=== PATIENT | female | born 2000 | race Caucasian/White ===

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

== ENCOUNTER 2021-08-08 17:04 | Emergency (ER) | payer OTHER, SELFPAY ==
--- NOTE | 2021-08-08 17:14 | ED.URI ---
HPI - URI/Sore Throat General Chief Complaint: Upper Respiratory Infection Stated Complaint: Fever/Sore Throat Time Seen by Provider: 08/08/21 17:46 Source: patient and RN notes reviewed Mode of arrival: ambulatory Limitations: no limitations History of Present Illness HPI Narrative: 20-year-old female presents with concern for fever and sore throat that started yesterday. She also reports headache and slight nausea. Reports she has been taking Tylenol without relief. She reports 2 of her close contacts have been ill, they have not been tested for anything. MD elicited complaint: fever and sore throat Related Data Home Medications Medication Instructions Recorded Confirmed etonogestrel-ethinyl estradiol See Rx Instructions .ROUTE .COMPLEX 08/08/21 08/08/21 [NuvaRing] Allergies Allergy/AdvReac Type Severity Reaction Status Date / Time egg Allergy Chest Pain Verified 08/08/21 17:38 milk Allergy Chest Pain Verified 08/08/21 17:38 peanut Allergy Chest Pain Verified 08/08/21 17:38 peanut oil Allergy Chest Pain Verified 08/08/21 17:38 Review of Systems Review of Systems: CONSTITUTIONAL: Reports malaise, fever. EYES: Denies visual changes, redness, or discharge. ENT: Denies rhinorrhea, congestion, sinus pain, otalgia. Reports sore throat. CARDIOVASCULAR: Denies chest pain, palpitations, or edema. RESPIRATORY: Denies cough. Denies dyspnea. GASTROINTESTINAL: Denies abdominal pain, vomiting, diarrhea. Reports nausea SKIN: Denies rash or itching. MUSCULOSKELETAL: Reports myalgia. NEUROLOGIC: Reports headache. All systems reviewed & are unremarkable except as noted in HPI and below PMFSH Past Medical History Medical History (Updated 08/08/21 @ 17:53 by Dawn Weinberg NP) Mononucleosis Strep pharyngitis UTI (urinary tract infection) Surgical History Surgical History H/O bladder repair surgery History of appendectomy Family History Family History (Updated 03/22/20 @ 18:07 by Gabi Chamorro CNP) Other No acute medical problems Social History Social History Smoking status: Current every day smoker Tobacco type: e-cigarettes/vaping Gender identity (if verbalized by the patient): Female Sexual Orientation (if Verbalized by the Patient): Straight or Heterosexual Spiritual care concerns: No Comments At time of signature, agree with nursing past medical, surgical, social and family history. There is no relevant family history pertinent to the presenting complaint Exam Narrative: GENERAL: Nontoxic appearing and in no acute distress. HEAD: Normocephalic EYES: PERRLA, conjunctivae clear ENT: Nares clear, clear discharge. Mucous membranes moist. TM pearly zaidi with sharp light reflex bilaterally; no tragal tenderness. Oropharynx not erythematous without lesions. Tonsils not enlarged and without exudate, no drooling, no hoarseness, no trismus, uvula midline. NECK: Supple. No lymphadenopathy CHEST: Clear to auscultation, breath sounds equal. No wheezing, rhonchi, rales, or stridor. No respiratory distress, speaks in full sentences. HEART: Regular rate and rhythm. No murmur heard. SKIN: Warm, dry, no rash. NEURO: Alert and oriented x3. PSYCH: Normal mood and affect Course Course Emergency Course: Patient is aware of diagnosis, understands and agrees to treatment plan. Anticipatory guidance given. Patient agrees to follow-up as directed and is aware of reasons to seek care at the emergency department. Portions of this record may have been created with voice recognition software Level of Care: [facility] Visit Vital Signs Vital signs: Vital Signs Temperature 101.1 F H 08/08/21 17:18 Pulse Rate 135 H 08/08/21 17:18 Respiratory Rate 18 08/08/21 17:18 Blood Pressure 111/71 08/08/21 17:18 Pulse Oximetry 98 08/08/21 17:18 Temperature 101.1 F H 08/08/21 17:18 Pulse Ra
[2021-08-08 17:18] VITALS: BP 111/71; PULSE 135; RESP 18; TEMP 38.4; O2SAT 98
== END 2021-08-08 17:55 | disposition home or self-care (01) ==
PROVIDERS: Emergency Provider Nurse Practitioner
DX: B34.9 Viral infection, unspecified (principal); Z20.822 Contact with and (suspected) exposure to COVID-19; F17.200 Nicotine dependence, unspecified, uncomplicated
CPT/HCPCS: 87081; 87426; 87804; 87880; 99213; C9803; G0463

== ENCOUNTER 2021-09-10 09:57 | Emergency (ER) | payer OTHER, SELFPAY ==
--- NOTE | 2021-09-10 10:02 | ED.ABDPAIN ---
HPI - Abdominal Pain General Chief Complaint: Urogenital-Female Stated Complaint: Lower right side pain Time Seen by Provider: 09/10/21 10:30 Source: patient and RN notes reviewed Mode of arrival: ambulatory Limitations: no limitations History of Present Illness HPI narrative: 20-year-old female presents concern for right flank pain. Reports for the last 6 days she has had dysuria, frequency, hematuria and this morning around 3 AM began having dull right flank pain. She reports she has a history of kidney stones, last had a stone in April. Reports she gets sharp flank pain with her kidney stones. Reports her last stone was in April. She currently reports dull mild ache in the right flank. She denies fever, body aches, chills, sweats. Reports she took a half a hydrocodone this morning, denies other intervention MD elicited complaint: flank pain Related Data Home Medications Medication Instructions Recorded Confirmed etonogestrel 0.12 mg-ethinyl See Rx Instructions .Route .COMPLEX 08/08/21 09/10/21 estradiol 0.015 mg/24 hr vaginal ring (NuvaRing) Allergies Allergy/AdvReac Type Severity Reaction Status Date / Time egg Allergy Chest Pain Verified 09/10/21 10:11 milk Allergy Chest Pain Verified 09/10/21 10:11 peanut Allergy Chest Pain Verified 09/10/21 10:11 peanut oil Allergy Chest Pain Verified 09/10/21 10:11 Review of Systems Review of Systems: CONSTITUTIONAL: Denies malaise, chills, sweats, or fever. CARDIOVASCULAR: Denies chest pain, palpitations, or edema. RESPIRATORY: Denies cough or dyspnea. GASTROINTESTINAL: Denies abdominal pain, nausea, vomiting, diarrhea GENITOURINARY: Reports dysuria, frequency, right flank pain, hematuria. Denies urgency, suprapubic pressure SKIN: Denies rash or itching. MUSCULOSKELETAL: Denies back pain or myalgia. All systems reviewed & are unremarkable except as noted in HPI and below PMFSH Past Medical History Medical History (Updated 09/10/21 @ 10:41 by Dawn Weinberg NP) Mononucleosis Strep pharyngitis UTI (urinary tract infection) Surgical History Surgical History H/O bladder repair surgery History of appendectomy Family History Family History (Updated 03/22/20 @ 18:07 by Gabi Chamorro CNP) Other No acute medical problems Social History Social History Smoking status: Current every day smoker Tobacco type: e-cigarettes/vaping Gender identity (if verbalized by the patient): Female Sexual Orientation (if Verbalized by the Patient): Straight or Heterosexual Spiritual care concerns: No Comments At time of signature, agree with nursing past medical, surgical, social and family history. There is no relevant family history pertinent to the presenting complaint Exam Narrative: GENERAL: Well-appearing, well-nourished, and in no acute distress. HEAD: Normocephalic. EYES: PERRLA, conjunctivae clear. NECK: Supple. No lymphadenopathy CHEST: Clear to auscultation. No respiratory distress. HEART: Regular rate and rhythm. ABDOMEN: Soft, nontender upon palpation, nondistended, normal active bowel sounds, no palpable or pulsatile masses, no guarding. No CVA tenderness SKIN: Warm, dry, no rash. NEURO: Alert and oriented x3. PSYCH: Normal mood and affect Course Course Emergency Course: Discussed with patient that her flank pain is likely due to urinary tract infection/pyelonephritis. Discussed treating for UTI and if symptoms persist with flank pain she can follow-up with her primary care or return for reevaluation for nephrolithiasis. Patient reports in the past she has taken Flomax for nephrolithiasis with success. She denies ever having to have a kidney stone surgically treated. Patient is aware of diagnosis, understands and agrees to treatment plan. Anticipatory guidance given. Patient agrees to follow-up as directed and is aware
[2021-09-10 10:03] VITALS: BP 112/66; PULSE 78; RESP 16; TEMP 37.2; O2SAT 100
== END 2021-09-10 10:44 | disposition home or self-care (01) ==
PROVIDERS: Emergency Provider Nurse Practitioner
DX: N39.0 Urinary tract infection, site not specified (principal)
CPT/HCPCS: 81003; 87077; 87086; 87186; 99213; G0463

== ENCOUNTER 2021-10-05 17:51 | Emergency (ER) | payer OTHER, SELFPAY ==
[2021-10-05 17:56] VITALS: BP 111/73; PULSE 107; RESP 14; TEMP 37; O2SAT 98
--- NOTE | 2021-10-05 17:57 | ED.URI ---
HPI - URI/Sore Throat General Chief Complaint: Upper Respiratory Infection Stated Complaint: fever sore throat and headache Time Seen by Provider: 10/05/21 17:58 Source: patient and RN notes reviewed History of Present Illness HPI Narrative: Patient is a 20-year-old female who presents the urgent care with complaints of fever, sore throat, headache. Patient states that started yesterday. Denies of any recent contact with illness. Patient states she is not concerned for COVID. States that she has been taking ibuprofen and Tylenol. Denies of any vomiting or abdominal pain. Denies of any urinary symptoms. No other acute complaints. No acute distress noted. Patient aware of the plan of care. Some parts of this dictation were generated by voice recognition software and may contain typographical and/or grammatical inaccuracies. Related Data Home Medications Medication Instructions Recorded Confirmed etonogestrel 0.12 mg-ethinyl See Rx Instructions .Route .COMPLEX 08/08/21 10/05/21 estradiol 0.015 mg/24 hr vaginal ring (NuvaRing) Allergies Allergy/AdvReac Type Severity Reaction Status Date / Time egg Allergy Chest Pain Verified 10/05/21 18:04 milk Allergy Chest Pain Verified 10/05/21 18:04 peanut Allergy Chest Pain Verified 10/05/21 18:04 peanut oil Allergy Chest Pain Verified 10/05/21 18:04 Review of Systems Review of Systems: CONSTITUTIONAL: Reports of fever EYES: Denies visual changes, redness, or discharge. ENT: Denies rhinorrhea, congestion, otalgia. Reports of sore throat CARDIOVASCULAR: Denies chest pain, palpitations, or edema. RESPIRATORY: Denies cough or dyspnea. GASTROINTESTINAL: Reports of nausea without vomiting, diarrhea or abdominal pain GENITOURINARY: Denies dysuria or hematuria. SKIN: Denies rash or itching. MUSCULOSKELETAL: Denies back pain, joint pain, or myalgia. NEUROLOGIC: Reports of headache All other systems reviewed are negative, except as documented in HPI. [facility] Past Medical History Medical History (Updated 10/05/21 @ 18:12 by BRENDA Frye) Mononucleosis Strep pharyngitis UTI (urinary tract infection) Surgical History Surgical History H/O bladder repair surgery History of appendectomy Family History Family History (Updated 03/22/20 @ 18:07 by Gabi Chamorro CNP) Other No acute medical problems Social History Social History Smoking status: Current every day smoker Tobacco type: e-cigarettes/vaping Gender identity (if verbalized by the patient): Female Sexual Orientation (if Verbalized by the Patient): Straight or Heterosexual Spiritual care concerns: No Comments At the time of my signature, I reviewed and agree with the nursing past medical, surgical, social, and family history. There is no relevant family history pertinent to the patient complaint. Exam Narrative: GENERAL: This is a well-nourished, well-developed patient, in no apparent distress. HEAD: normocephalic, atraumatic. EYES: PERRL. Sclera clear/white. Vision is grossly intact. EARS: External ears normal, auditory canals clear and without drainage, TMs normal without perforation. Hearing grossly intact. NOSE: External nose normal with no obvious nasal discharge, nares without redness, no rhinorrhea. THROAT: Mucous membranes moist, mild erythema noted posterior pharynx with moderate postnasal drainage without exudate or ulceration NECK: Neck supple, non-tender without lymphadenopathy CARDIOVASCULAR: Regular rate and rhythm without murmurs, gallops, or rubs. RESPIRATORY: Clear to auscultation. Breath sounds equal bilaterally. No wheezes, rales, or rhonchi. GASTROINTESTINAL: Abdomen soft, non-tender, nondistended. Bowel sounds are active. SKIN: warm, intact with no suspicious lesions or rash, good texture and turgor. NEURO: awake, alert, and oriented to person, place and time.
[2021-10-05 21:33] LABS: SARS-CoV-2 RNA PCR Negative
== END 2021-10-05 18:28 | disposition home or self-care (01) ==
PROVIDERS: Emergency Provider Nurse Practitioner Family
DX: J02.9 Acute pharyngitis, unspecified (principal); Z20.822 Contact with and (suspected) exposure to COVID-19; F17.290 Nicotine dependence, other tobacco product, uncomplicated
CPT/HCPCS: 87081; 99213; C9803; G0463; U0003; U0005

== ENCOUNTER 2021-11-03 12:04 | Outpatient (CLI) | payer OTHER, SELFPAY ==
[2021-11-03 18:47] LABS: Basophils Percent Auto 0.2 % (0.2-1.2); Eosinophils Absolute Auto 0.3 K/mm3 (0-0.3); Eosinophils Percent Auto 3.6 % (0-4.4); Hematocrit 41.6 % (37.0-47.0); Hemoglobin 12.5 g/dL (12.0-15.0); Immature Granulocyte Absolute 0.02 K/mm3 (0.00-0.031); Immature Granulocyte Percent A 0.2 % (0-0.5); Lymphocytes Absolute Auto 2.09 K/mm3 (0.9-3.2); Lymphocytes Percent Auto 25.4 % (18.3-44.2); Mean Corpuscular Hemoglobin 25.1 pg (26-34); Mean Corpuscular Volume 83.5 fl (80-100); Mean Platelet Volume 10.8 fl (7.4-10.4); Monocytes Absolute Auto 0.7 K/mm3 (0.1-0.6); Monocytes Percent Auto 7.9 % (2.6-8.5); Neutrophils Absolute Auto 5.1 K/mm3 (1.3-6.7); Neutrophils Percent Auto 62.7 % (45.5-73.1); Platelet Count Result 278 k/mm3 (150-375); Red Blood Count 4.98 M/mm3 (4.2-5.4); Red Cell Distribution Width 14.9 % (11.5-14.5); White Blood Count 8.2 K/mm3 (4.5-10.0)
[2021-11-03 19:12] LABS: Alanine Aminotransferase 16 U/L (6-35); Albumin Level 4.1 g/dL (3.7-5.6); Alkaline Phosphatase 72 U/L (45-116); Anion Gap 8 mmol/L (8-16); Aspartate Amino Transferase 42 U/L (14-36); Bilirubin,Total 0.2 mg/dL (0.2-1.3); Blood Urea Nitrogen 9 mg/dL (8-21); Calcium 9.5 mg/dL (8.9-10.7); Carbon Dioxide 26 mmol/L (22-30); Chloride 104 mmol/L (98-107); Estimated Glomerular Filt Rate > 60; Glucose 87 mg/dL (65-110); Sodium 138 mmol/L (134-143)
[2021-11-03 19:14] LABS: Appearance Urine Cloudy (Clear); Bilirubin Urine Negative (Negative); Blood Urine Negative (Negative); Color Urine Yellow (Yellow); Glucose Urine UA Negative (Negative); Ketones Urine Negative (Negative); Leukocyte Esterase Ur Trace LEU/UL (NEGATIVE); Nitrate Urine Negative (Negative); Protein Urine Trace mg/dL (Negative); Specific Grav Ur >= 1.030 (1.001-1.035); Urobilinogen Urine 0.2 mg/dL (<2.0)
[2021-11-03 19:44] LABS: Erythrocyte Sedimentation Rate 12 mm/hr (0-20)
[2021-11-03 19:47] LABS: Mucus Urine Rare /lpf; WBC Urine 0-3 /hpf (0-3)
[2021-11-03 19:49] LABS: Add Urine Microscopic? YES
[2021-11-03 20:30] LABS: Iron 28 ug/dL (37-170)
[2021-11-03 20:39] LABS: Percent Iron Saturation 7 % (20-50)
[2021-11-03 20:53] LABS: Vitamin D 25 Hydroxy 47.1 ng/mL
[2021-11-07 14:43] LABS: EBV Nuclear Ab Antibody >600.00 U/mL (<18.00); EBV Nuclear Ab Interpretation Recent
== END 2021-11-03 12:05 | disposition home or self-care (01) ==
LOC: ANHBWCLAB 12:05
PROVIDERS: PCP Family Medicine; Visit Provider Family Medicine
DX: D50.9 Iron deficiency anemia, unspecified (principal); A68.9 Relapsing fever, unspecified; E55.9 Vitamin D deficiency, unspecified; N39.0 Urinary tract infection, site not specified
CPT/HCPCS: 36415; 80053; 81001; 82306; 82728; 83540; 83550; 85025; 85652; 86664; 86665; 86666

== ENCOUNTER 2023-02-04 11:33 | Emergency (ER) | payer BC, SELFPAY ==
[2023-02-04 11:41] VITALS: BP 118/77; PULSE 96; RESP 18; TEMP 36.9; O2SAT 99
--- NOTE | 2023-02-04 11:44 | ED.EAR ---
HPI - Ear Problem General Chief complaint: Ear Stated complaint: Right Ear Irritation Source: patient and RN notes reviewed History of Present Illness HPI Narrative: 22 yo F presents to urgent care with complaints of right ear pain and muffled hearing since yesterday. Pt states her muffled hearing was relieved when she was taking a steamy shower last night but it continues today. Reports having congestion and runny nose recently. Denies any fevers, chills, chest pain, SOB, or other symptoms. Related Data Allergies Allergy/AdvReac Type Severity Reaction Status Date / Time No Known Allergies Allergy Verified 02/04/23 11:44 Review of Systems Review of Systems: CONSTITUTIONAL: Denies fever, chills, or sweats. EYES: Denies visual changes, redness, or discharge. ENT: Right ear pain and muffled CARDIOVASCULAR: Denies chest pain, palpitations, or edema. RESPIRATORY: Denies cough or dyspnea. GASTROINTESTINAL: Denies abdominal pain, nausea, vomiting, or diarrhea. GENITOURINARY: Denies dysuria or hematuria. SKIN: Denies rash or itching. MUSCULOSKELETAL: Denies back pain, joint pain, or myalgia. NEUROLOGIC: Denies headache, numbness, or weakness. Pertinent positives per HPI. PMFSH Comments At the time of my signature, I reviewed and agree with the nursing past medical, surgical, social, and family history. There is no relevant family history pertinent to the patient complaint. Exam Narrative: GENERAL: This is a well-nourished, well-developed patient, in no apparent distress. HEAD: normocephalic, atraumatic. EYES: Sclera clear/white. Vision is grossly intact. EARS: External ears normal, auditory canals clear and without drainage, Left TM normal without perforation. Hearing grossly intact. Right TM erythremic and bulging NOSE: External nose normal with no obvious nasal discharge, nares without redness, no rhinorrhea. THROAT: Mucous membranes moist, posterior pharynx clear. NECK: Neck supple, non-tender without lymphadenopathy, masses or thyromegaly. CARDIOVASCULAR: Regular rate and rhythm without murmurs, gallops, or rubs. RESPIRATORY: Clear to auscultation. Breath sounds equal bilaterally. No wheezes, rales, or rhonchi. SKIN: warm, intact with no suspicious lesions or rash, good texture and turgor. NEURO: awake, alert, and oriented to person, place and time. There were no obvious focal neurologic abnormalities. Course Course Level of Care: Express Care Visit Vital Signs Vital signs: reviewed Medical Decision Making MDM Narrative Medical decision making narrative: Take antibiotics as directed. May given ibuprofen and/or Tylenol as needed for pain and/or fever. Follow up with primary care provider in 7-10 days to have ear rechecked. Differential Diagnosis Differential Diagnosis: AOM, otitis externa, cerumen impaction Critical Care Time Critical Care Time Critical Care Time: No Discharge Plan Discharge Clinical Impression: Otitis media Qualifiers: Otitis media type: unspecified Chronicity: acute Qualified Code(s): H66.90 - Otitis media, unspecified, unspecified ear Patient Disposition: Home, Self-Care Condition: Stable Instructions: Antibiotic Form, Ear Infection (ED) Additional Instructions: Take antibiotics as directed. May given ibuprofen and/or Tylenol as needed for pain and/or fever. Follow up with primary care provider in 7-10 days to have ear rechecked. Prescriptions: New amoxicillin 500 mg capsule 500 mg PO Q12H Qty: 20 0RF fluticasone propionate [24 Hour Allergy Relief] 50 mcg/actuation spray,suspension 1 spray intranasal BID Qty: 16 0RF Rx Instructions: administer into each nostril Follow-up/Referrals: Matt Sanchez MD [Primary Care Provider] - Stand Alone Forms: Work/School Release IP Time of Disposition: 11:48
== END 2023-02-04 11:52 | disposition home or self-care (01) ==
PROVIDERS: Emergency Provider Nurse Practitioner Family; PCP Family Medicine
DX: H66.91 Otitis media, unspecified, right ear (principal)
CPT/HCPCS: 99213; G0463

== ENCOUNTER 2023-12-14 19:05 | Emergency (ER) | payer BC, SELFPAY ==
[2023-12-14 19:09] VITALS: BP 137/78; PULSE 98; RESP 16; TEMP 37.6; O2SAT 99
--- NOTE | 2023-12-14 19:38 | ED.GENADULT ---
HPI - General Adult General Chief complaint: Urogenital-Female Stated complaint: poss UTI Time Seen by Provider: 12/14/23 19:38 Source: patient, RN notes reviewed and old records reviewed Mode of arrival: ambulatory Limitations: no limitations History of Present Illness HPI narrative: 22-year-old female to Express Care for complaint of burning with urination, bladder discomfort and urinary frequency for 5 days. Patient denies flank pain, abdominal pain, back pain, fever, nausea, vomiting, bowel changes. Patient endorses history of chronic UTIs, states that her last 1 was approximately 1 year ago. Patient has been treating at home with AZO for 2 days. Patient advised that this will skew UA results and her urine will be sent off for culture. Patient verbalized understanding. Patient resting in exam room in no acute distress. Respirations even and nonlabored. Patient able to tolerate fluids by mouth. Related Data Home Medications Medication Instructions Recorded Confirmed etonogestrel 0.12 mg-ethinyl See Rx Instructions .Route .COMPLEX 08/08/21 12/14/23 estradiol 0.015 mg/24 hr vaginal ring (NuvaRing) Allergies Allergy/AdvReac Type Severity Reaction Status Date / Time egg Allergy Chest Pain Verified 12/14/23 19:42 milk Allergy Chest Pain Verified 12/14/23 19:42 peanut Allergy Chest Pain Verified 12/14/23 19:42 peanut oil Allergy Chest Pain Verified 12/14/23 19:42 Review of Systems Review of Systems: All systems reviewed & are unremarkable except as noted in HPI and below Constitutional: Constitutional: Reports no additional constitutional complaints Eyes: Eyes: Reports no additional eye complaints ENT: Reports system reviewed and no additional complaints, except as documented Cardiovascular: Cardiovascular: Reports no additional cardiovascular complaints, Denies chest pain and Denies dyspnea Respiratory: Respiratory: Reports no additional respiratory complaints, Denies cough and Denies dyspnea Genitourinary: Genitourinary: Reports as per HPI, Reports nocturia, Reports dysuria, Denies flank pain and Reports other (pt c/o bladder pain ) Musculoskeletal: Musculoskeletal: Reports no additional musculoskeletal complaints Neurologic: Reports system reviewed and no additional complaints, except as documented Psychiatric: Psychiatric: Reports no additional psychiatric complaints PMFSH Past Medical History Medical History Mononucleosis Strep pharyngitis UTI (urinary tract infection) Surgical History Surgical History H/O bladder repair surgery History of appendectomy Family History Family History Other No acute medical problems Social History Social History Smoking status: Current every day smoker Tobacco type: e-cigarettes/vaping Alcohol intake: never Substance use: never Substance use type: does not use Living arrangements: with family Occupation/Education: student Gender identity (if verbalized by the patient): Female Sexual Orientation (if Verbalized by the Patient): Straight or Heterosexual Spiritual care concerns: No Agree to blood products: Yes Comments At the time of my signature, I reviewed and agree with the nursing past medical, surgical, social, and family history. There is no relevant family history pertinent to the patient complaint. Exam Const: General: cooperative, healthy appearing, comfortable, no acute distress, alert and well nourished Nutritional Appearance: well nourished Orientation/consciousness: patient oriented x3 Limitations: no limitations HENMT: Head: normal to inspection Ears: external ears normal Face/Nose/Sinus: Normal external nose present, Normal nares present, normal facial exam, No erythema
== END 2023-12-14 19:58 | disposition home or self-care (01) ==
PROVIDERS: Emergency Provider Nurse Practitioner Family; PCP Family Medicine
DX: R30.0 Dysuria (principal)
CPT/HCPCS: 87086; 87088; 99213; G0463

== ENCOUNTER 2024-12-31 16:42 | Emergency (ER) | payer SELFPAY ==
--- OUTSIDE RECORDS SUMMARY | 2024-12-31 16:44 | XMS_ITS | Clinical Summary ---
Author Organization [facility] Address [address] [place] [address] Phone Care Team Providers Care Trommel Tender Name Role Phone Matt Sanchez MD Primary Care Provider [phone] Clarissa Kiser APRN, NEEDLEWORKER Unavailable [phone] Allergies No known active allergies Medications sulfamethoxazol e-trimethoprim DS (BACTRIM DS, SEPTRA DS) 800-160 MG Tablet TK 1 T PO BID 0 12/26/2018 Activ e NUVARING 0.12-0.015 MG/24HR RING 3 12/04/2018 Active ketorolac (TORADOL) 10 MG Tablet Take 1 Tablet by mouth every 6 hours as needed for Moderate or more severe pain. 20 Tablet 01/01/2021 Active tamsulosin (FLOMAX) 0.4 MG Capsule Take 1 Capsule by mouth daily. 10 Capsule 01/01/2021 Active acetaminophen-c odeine (TYLENOL #3) 300-30 MG TabletIndicatio ns:Acute cystitis with hematuria Take 1 Tablet by mouth every 6 hours as needed for Moderate or more severe pain. 12 Tablet 09/10/2021 Active loperamide (IMODIUM) 2 MG CapsuleIndicati ons:Diarrhea Take 2 mg by mouth as needed. Indications: Diarrhea Active tamsulosin (FLOMAX) 0.4 MG Capsule Take 0.4 mg by mouth daily. Active ondansetron (ZOFRAN) 4 MG Tablet Take 1-2 Tablets by mouth every 8 hours as needed for Nausea - 1st line. 10 Tablet 12/13/2021 Active Social History Tobacco Use Types Packs/Day Years Used Date Smoking Tobacco: Never Smokeless Tobacco: Never Alcohol Use Standard Drinks/Week Comments Never 0 (1 standard drink = 0.6 oz pur e alcohol) Comments No Sex and Gender Information Value Date Recorded Sex Assigned at Not on file Legal Sex Female 3:54 PM CDT Gender Identity Not on file Sexual Orientation Not on file Last Filed Vital Signs Vital Sign Reading Time Taken Comments Blood Pressure 121/79 12/13/2021 9:54 PM CDT Pulse 99 12/13/2021 9:54 PM CDT Temperature 36.4 C (97.6 F) 12/13/2021 9:54 PM CDT Respiratory Rate 16 12/13/2021 9:54 PM CDT Oxygen Saturation 98% 12/13/2021 9:54 PM CDT Inhaled Oxygen Concentration - - Weight 45.4 kg (100 lb) 12/13/2021 7:14 PM CDT Height 160 cm (5' 3) 12/13/2021 7:14 PM CDT Body Mass Index 17.71 12/13/2021 7:14 PM CDT Plan of Treatment Health Maintenance Due Date Last Done Comments Hepatitis C Virus (HCV) Screening 2001 Influenza Immunization (#1) 2024 04/10/2012, 1 04/09/2007 SARS-COV-2 Immunization ( season) 2024 Respiratory Syncytial Virus (RSV) Immunization (Adult) (1 - 1-dose 75+ series) 2076 Hepatitis B Immunization Completed 003, 02/20/2002, 2001 Pneumococcal Immunization Combined Aged Out 12/27/2002, 06/26/2002, 04/24/2002, Additional history exists No longer eligible based on patient's age to complete this topic Measles Mumps Rubella (MMR) Immunization Discontinued 05/18/2006, 12/27/2002 Polio (IPV) Immunization Discontinued 007, 09/19/2002, 04/24/2002, Additional history exists Varicella Immunization Discontinued 05/18/2006, 2002 DTaP/Tdap/Td Immunization Discontinued 2013, 05/18/2006, 03/19/2003, Additional history exists TdaP Immunization Completed 08/24/2013 Human Papillomavirus (HPV) Immunization Completed 04/17/2014, 11/05/2013, 08/24/2013 Hepatitis A Immunization Discontinued 05/27/2015, 07/28 Meningococcal Immunization (ACWY) Completed 04/04/2018, 08/24/2013 Meningococcal B Immunization Completed 01/16/2020, 04/04/2018 Rotavirus Immunization Aged Out No lo nger eligible based on patient's age to complete this topic Care Teams Trommel Tender Relationship Specialty Start Date End Date Matt Sanchez MD PCP - General Family Medicine 12/13/21 Clarissa Kiser I, INTERACTIVE MEDIA DESIGNER, NEEDLEWORKER [address] [facility] [address] [place] [id number] Advanced Practice Nurse 12/13/21
--- OUTSIDE RECORDS SUMMARY | 2024-12-31 16:44 | XMS_ITS | Clinical Summary ---
Author Organization [facility] Address [address] [place] [address] Care Team Providers Care Paperhanger Pipe Name Role Phone Alexandra Montgomery MD Primary Care Provider Source Comments [facility],non-owned Affiliates and Associated Physician Practices is amultiple site organization consisting of ambulatory clinics and hospital sitesin [place], [place], [place] and [place]. This disclosure is being madepursuant to the Care Everywhere program and may not contain all information available regarding this patient. Last updated 17.[facility] [employer] Allergies Active Allergy Reactions Criticality Noted Date Comments Albumin GI Discomfort 05/02/2018 Milk-Related Compounds Other,GI Discomfort 07/2018 Tightness in throat Peanut-Derived Other 05/02/2018 Tightness in throat Medications * Be aware that medications may not be up to date on this document. Alwaysverify current medications with the patient. NUVARING 0.12-0.015 MG/24HR vaginal ring 0 04/17/2018 Active Pediatric Multivit-Mineral s-C (GUMMI BEAR MULTIVITAMIN/MIN PO) Take 1 tablet by mouth once daily Active Active Problems Problem Noted Date Diagnosed Date Kidney stone 05/02/2018 Recurrent UTI 05/02/2018 Short stature 04/27/2012 Social History Tobacco Use Types Packs/Day Years Used Date Smoking Tobacco: Never Smokeless Tobacco: Never Tobacco Cessation:Counseling Given: No Alcohol Use Standard Drinks/Week Comments Not Asked 0 (1 standard drink = 0.6 oz pur e alcohol) Comments No Sex and Gender Information Value Date Recorded Sex Assigned at Not on file Legal Sex Female 5:44 AM PIPE COVERING MOLDER Gender Identity Not on file Sexual Orientation Not on file Last Filed Vital Signs Vital Sign Reading Time Taken Comments Blood Pressure 102/60 01/22/2019 1:38 PM CDT Pulse 78 04/27/2012 9:44 AM PIPE COVERING MOLDER Temperature - - Respiratory Rate 16 04/27/2012 9:44 AM PIPE COVERING MOLDER Oxygen Saturation - - Inhaled Oxygen Concentration - - Weight 43.6 kg (96 lb 1.9 oz) 01/22/2019 1:38 PM CDT Height 160.6 cm (5' 3.23) 01/22/2019 1:38 PM CD T Body Mass Index 16.9 01/22/2019 1:38 PM CDT Plan of Treatment Health Maintenance Due Date Last Done Comments HIV SCREENING 2016 HPV VACCINE (1 - 3-dose series) 2016 CHLAMYDIA/GONORRHEA SCREENING 2017 MENINGOCOCCAL (Group B) VACC INE SHARED DECISION-MAKING (1 of 2 - Standard) 2017 HEPATITIS C SCREENING 12/15/2019 DTAP/TDAP/TD VACCINES (1 - Tdap) 2020 HEPATITIS B VACCINE (1 of 3 - 19+ 3-dose series) 2020 DEPRESSION SCREENING 03/28/2024 COVID-19 VACCINE (1 - 2023-2 5 season) 2024 INFLUENZA VACCINE (#1) 2024 ZOSTER VACCINE (1 of 2) 12/20/2051 HIB VACCINE Aged Out No longer eligi ble based on patient's age to complete this topic MENINGOCOCCAL GROUPS A/C/Y/W VACCINE Aged Out No longer eligible b ased on patient's age to complete this topic PNEUMOCOCCAL VACCINE Aged Out No long er eligible based on patient's age to complete this topic Insurance [employer] MEDICAID - [place] [facility] CARE [facility] CARE MEDICAID - OUT OF STATE Care Teams Paperhanger Pipe Relationship Specialty Start Date End Date Alexandra Montgomery MD PCP - General Pediatrics 05/02/18
--- OUTSIDE RECORDS SUMMARY | 2024-12-31 16:44 | XMS_ITS | Clinical Summary ---
Author Organization [facility] Address [address] [place] [address] [place] [address] Care Team Providers Care Oceanography Teacher Name Role Phone Provider, Abstract Primary Care Provider Unavail able Allergies Active Allergy Reactions Criticality Noted Date Comments Egg Nausea and Vomiting Low 07/07/2020 Egg White Unknown,Other (See Comments) Low 05/02/2018 Milk Containing Products (Dairy) Nausea and Vomiting,Other (See Comments) Low 05/02/2018 Tightness in throat Peanut Other (See Comments) Low 05/02/2018 Tightness in throat Tightness in throat Medications tamsulosin (FLOMAX) 0.4 mg capsule Take 0.4 mg by mouth. 07/01/2020 Active HYDROcodone-rahul taminophen (NORCO) 5-325 mg tablet Take 1-2 Tablets by mouth. 07/01/2020 Active etonogestrel-Et hinyl Estradiol (NuvaRing) 0.12-0.015 mg/24 hr Ring 04/17/2018 Activ e multivitamin (DAILY-LIZ) tablet Take 1 Tablet by mouth daily. Active dexAMETHasone (DECADRON) 4 mg tabletIndicatio ns:Iron deficiency anemia due to chronic blood loss Take 1 Tablet (4 mg) by mouth 2 times daily. Take 07/31/20 and 08/01/20 prior to iron infusion 2 Tablet 07/30/2020 Active Active Problems Problem Noted Date Diagnosed Date Iron deficiency anemia 07/07/2020 Family History Relation Name Status Comments Father Alive Mother Alive Sister 1 Alive Sister 2 Alive Social History Tobacco Use Types Packs/Day Years Used Date Smoking Tobacco: Never Smokeless Tobacco: Never Alcohol Use Standard Drinks/Week Comments Never 0 (1 standard drink = 0.6 oz pur e alcohol) Comments Unknown Sex and Gender Information Value Date Recorded Sex Assigned at Not on file Legal Sex Female 2:59 PM [employer] Gender Identity Not on file Sexual Orientation Not on file Last Filed Vital Signs Vital Sign Reading Time Taken Comments Blood Pressure 125/73 07/30/2020 11:20 AM CDT Pulse 106 07/30/2020 11:20 AM CDT Temperature 36.6 C (97.9 F) 07/30/2020 11:20 AM CDT Respiratory Rate - - Oxygen Saturation 98% 07/30/2020 11:20 AM CDT Inhaled Oxygen Concentration - - Weight 45 kg (99 lb 3.2 oz) 07/30/2020 11:20 AM CDT Height 160 cm (5' 3) 07/30/2020 11:20 AM CDT Body Mass Index 17.57 07/30/2020 11:20 AM CDT Plan of Treatment Health Maintenance Due Date Last Done Comments CHLAMYDIA SCREENING (ANNUAL) 11-24 YEARS 2012 HPV VACCINES (1 - 3-dose series) 2016 DTAP/TDAP/TD VACCINES (1 - Tdap) 2020 HEPATITIS B VACCINES (1 of 3 - 19+ 3-dose series) 11/27 CERVICAL CANCER SCREENING 2022 HPV/Cotest (21-29) 2022 PAP SMEAR 2022 INFLUENZA VACCINE (#1) 2024 Care Teams Oceanography Teacher Relationship Specialty Start Date End Date Provider, Abstract NO ADDRESS ON FILE PCP - General 07/07/20
--- OUTSIDE RECORDS SUMMARY | 2024-12-31 16:44 | XMS_ITS | Data Portability ---
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 and review of plan of care. [id number] Bright Juarez MD [facility] [address] [address] 10/28/2022 14:10:51 10/28/2022 15:05:13 Vulvovaginitis [id number] N76.0 This patient is a 21-year-ol d female who presents for vulvar irritation discharge. She for several days has had white discharge inflammati on swelling. She has some swelling and erythema on the vulva. It was examined. The distal vagina appears normal. There is white discharge at the introitus. She will be treated with oral Diflucan and a topical steroid/an tifungal. [id number] SOFIYA Block [facility] [address] [address] 05/30/2023 15:19:03 05/31/2023 09:26:00 Contraception care management [id number] Z30.9 Discussed all control options in great detail. Pt would like to start ocp. She is aware of the risks and benefits. She does not have any medical condition that is contraindi cated with the use of estrogen containing control. Pt will start her pills on the first day following the start of her period. She is aware it is not effective for control the first month. She is also aware of the importance of taking at the same time every day. Encouraged use of condoms as the pill does not protect against STD's. Will return in 3 months for med check. Pt verbalized understand ing. Time spent in visit is a total of 20 mins with at least 50% of visit consisting of counseling and review of plan of care. Health Concerns Section Related Observation LastModified by Organization Detai ls LastModified Time None Recorded Concern Status LastModified by Organization Details LastModified Time None Recorded Advance Directives Directive None Recorded Payers Insurance Date Sequence Insurance Name Policy Number Policy Hayden Covered Member ID Hayden Member ID Guarantor Name 12/16/2021 2 [place] [employer] A[employer] Lizeth Kai [id number] Lizeth Kai 03/23/2022 1 [facility] [id number] Jorge Quinn [id number] Lizeth Zavalatate 03/30/2024 1 [employer] [id number] Jorge Lucastate [id number] Lizeth Quinn Notes Date Note Type Note Provider Name and Address Organization Details Recorded Time 10/04/2020 text/html ROS as noted in the HPI Here today to discuss possible contraception change. She is on nuvaring and really loves it but has found that sometimes it will slip down and feel like it is going to fall out. This is usually after she has had sex with her boyfriend. Unsure if she is placing it high enough?? Will occasionally feel this way randomly as well but overall she has had no issues. She is interested in hearing more about the BC patch as well. Shayna Hansen [facility] [address], [place], [address], [facility] 10/04/2020 13:14:59 01/12/2022 text/html ROS as noted in the HPI Here today for medication check. Shayna Hansen [facility] [address], [place], [address], [facility] 01/12/2022 12:00:59 03/30/2022 text/html ROS as noted in the HPI Here today for medication check of Xulane patch. Shayna Hansen [facility] [address], [place], [address], [facility] 03/30/2022 12:35:51 10/28/2022 text/html Vaginal/Vulvar ProblemReported by Patient This patient is a 21-year-old female who presents for vulvar irritation discharge. She for several days has had white discharge inflammation swelling. She has some swelling and erythema on the vulva. It was examined. The distal vagina appears normal. There is white discharge at the introitus. She will be treated with oral Diflucan and a topical steroid/antifungal. Bright Juarez MD [address], [place], [address], [facility] 10/28/2022 14:51:51 05/30/2023 text/html 22yo [id number] for BC consultusing withdrawal for BC currentlywas on the patch about 6 months ago, would like a different methodhas also tried pills and the nuvaring previouslydenies h/o DVT/PE, HTN, Stroke/MO, cancer, liver disease, or migraine with aura SOFIYA Block [address], [place], [address], [facility] 05/31/2023 09:14:59 OBGyn Episode No OBEpisode recorded.
[2024-12-31 17:20] VITALS: BP 120/69; PULSE 77; RESP 16; TEMP 36.6; O2SAT 100
--- NOTE | 2024-12-31 17:45 | ED.FEMALEGU ---
HPI - Female Genitourinary General Chief complaint: Urogenital-Female Stated complaint: uti Time Seen by Provider: 12/31/24 17:40 Source: patient and RN notes reviewed Mode of arrival: ambulatory Limitations: no limitations History of Present Illness HPI Narrative: 24-year-old female patient presents today complaining of urinary frequency, urgency, dysuria, and voiding small amounts. Symptoms began yesterday. Denies hematuria, abdominal or back pain, fever. She took some azo yesterday with mild relief, but none today. No recent antibiotic use. Related Data Allergies Allergy/AdvReac Type Severity Reaction Status Date / Time egg Allergy Chest Pain Verified 12/31/24 17:31 milk Allergy Chest Pain Verified 12/31/24 17:31 peanut Allergy Chest Pain Verified 12/31/24 17:31 peanut oil Allergy Chest Pain Verified 12/31/24 17:31 PMFSH Past Medical History Medical History Mononucleosis Strep pharyngitis UTI (urinary tract infection) Surgical History Surgical History H/O bladder repair surgery History of appendectomy Family History Family History Other No acute medical problems Social History Social History Smoking status: Current every day smoker Tobacco type: e-cigarettes/vaping Alcohol intake: never Substance use: never Substance use type: does not use Living arrangements: with family Occupation/Education: student Gender identity (if verbalized by the patient): Female Sexual Orientation (if Verbalized by the Patient): Straight or Heterosexual Spiritual care concerns: No Agree to blood products: Yes Comments At time of signature, I have reviewed and agree with nursing past medical, surgical, social and family history unless otherwise noted. Please see nursing chart for further information. There is no relevant family history pertinent to the presenting complaint Exam Narrative: GENERAL: Well-appearing, well-nourished, and in no acute distress. HEAD: Normocephalic, atraumatic. EYES: EOMI. No redness or drainage. Conjunctivae normal. ENT: Mucous membranes pink and moist. NECK: Normal AROM. CHEST: No respiratory distress. Clear to auscultation. HEART: Regular rate and rhythm. No murmur appreciated. Normal peripheral pulses. ABDOMEN: Soft, nontender, nondistended, normal active bowel sounds. -CVAT SKIN: Warm, dry, no rash. Capillary refill normal. Normal skin turgor. NEURO: No focal deficits. Alert and oriented x3. Gait steady. PSYCH: Normal affect. No signs of depression or anxiety. Course Course Level of Care: Express Care Visit Vital Signs Vital signs: Vital Signs Temperature 97.9 F 12/31/24 17:20 Pulse Rate 77 12/31/24 17:20 Respiratory Rate 16 12/31/24 17:20 Blood Pressure 120/69 12/31/24 17:20 Pulse Oximetry 100 12/31/24 17:20 Oxygen Delivery Room Air 12/31/24 17:20 Temperature 97.9 F 12/31/24 17:20 Pulse Rate 77 12/31/24 17:20 Respiratory Rate 16 12/31/24 17:20 Blood Pressure 120/69 12/31/24 17:20 Pulse Oximetry 100 12/31/24 17:20 Oxygen Delivery Room Air 12/31/24 17:20 Reviewed MDM - Female Genitourinary MDM Narrative Medical decision making narrative: 24-year-old female patient presents today complaining of urinary frequency, urgency, dysuria, and voiding small amounts. Symptoms began yesterday. Denies hematuria, abdominal or back pain, fever. She took some azo yesterday with mild relief, but none today. Patient's exam normal. Unable to run a urinalysis due to azo use. Urine sample was orange. Culture sent for testing. Based on patient's history, will start her on Macrobid. May continue azo for discomfort. Vital signs stable. Patient agrees with plan. Anticipatory guidance and ED precautions given. Differential Diagnosis Differential diagnosis: Likely urinary tract infection, vaginitis and cystitis Critical Care Time Critical Care Time Critical Care Time: No Discharge Plan Discharge Clinical Impression: UTI symptoms Patient Disposition: Home Condition: Stable Instructions: Antibiotic Form, Urinary Tract Infection in Women (DC) Additional Instructions: Your urine will be sent to the hospital for urine culture and you will be notified if your antibiotics need to be changed. Please take the Macrobid as prescribed until gone. You may continue azo for symptoms if you wish. As discussed, if you develop worsening symptoms such as fever greater than 100.3, severe abdominal or back pain, please go to the ER immediately for further evaluation. Patient Language: Congolese Prescriptions: New nitrofurantoin monohyd/m-cryst [Macrobid] 100 mg capsule 100 mg PO Q12H 7 Days Qty: 14 0RF Rx Instructions: must administer with a meal/food Follow-up/Referrals: Matt Sanchez MD [Primary Care Provider, Family Practice] Time of Disposition: 17:56
== END 2024-12-31 18:00 | disposition home or self-care (01) ==
PROVIDERS: Emergency Provider Nurse Practitioner; PCP Family Medicine
DX: R30.0 Dysuria (principal); R35.0 Frequency of micturition; R39.15 Urgency of urination; F17.290 Nicotine dependence, other tobacco product, uncomplicated
CPT/HCPCS: 87086; 87186; 99213; G0463

== ENCOUNTER 2025-02-05 07:58 | Outpatient (CLI) | payer BC, SELFPAY ==
--- OUTSIDE RECORDS SUMMARY | 2025-02-05 08:06 | XMS_ITS | Clinical Summary ---
Author Organization [facility] Address [address] [place] [address] Phone Care Team Providers Care Manufacturing Technology Analyst Name Role Phone Matt Sanchez MD Primary Care Provider [phone] Clarissa Kiser APRN, COOK RESTAURANT Unavailable [phone] Allergies No known active allergies Medications sulfamethoxazol [...] age to complete this topic Care Teams Manufacturing Technology Analyst Relationship Specialty Start Date End Date Matt Sanchez MD PCP - General Family Medicine 12/13/21 Clarissa Kiser I, MANAGER DAIRY, COOK RESTAURANT [address] [facility] [address] EMANU[address] [place] [id number] Advanced Practice Nurse 12/13/21
--- OUTSIDE RECORDS SUMMARY | 2025-02-05 08:06 | XMS_ITS | Clinical Summary ---
Author Organization [facility] Address [address] [place] [address] Care Team Providers Care Shingles Roofer Helper Name Role Phone Alexandra Montgomery MD Primary Care Provider Source Comments [facility],non-owned Affiliates and Associated Physician Practices is amultiple site organization consisting of ambulatory clinics and hospital sitesin [place], [place], [place] and [place]. This disclosure is being madepursuant to the Care Everywhere program and may not contain all information available regarding this patient. 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
--- OUTSIDE RECORDS SUMMARY | 2025-02-05 08:06 | XMS_ITS | Clinical Summary ---
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
[2025-02-05 08:44] LABS: Hematocrit 36.3 % (37.0-47.0); Hemoglobin 11.2 g/dL (12.0-15.0); Mean Corpuscular HGB Conc 30.9 g/dl (32-36); Mean Corpuscular Hemoglobin 24.5 pg (26-34); Mean Corpuscular Volume 79.3 fl (80-100); Platelet Count Result 337 k/mm3 (150-375); Red Blood Count 4.58 M/mm3 (4.2-5.4); White Blood Count 8.1 K/mm3 (4.5-10.0)
[2025-02-05 08:55] LABS: Alanine Aminotransferase 20 U/L (6-35); Albumin Level 4.4 g/dL (3.5-5.1); Alkaline Phosphatase 72 U/L (38-126); Anion Gap 8 mmol/L (4-12); Aspartate Amino Transferase 26 U/L (14-36); Bilirubin,Total 0.3 mg/dL (0.2-1.3); Blood Urea Nitrogen 12 mg/dL (7-17); Calcium 9.6 mg/dL (8.4-10.2); Carbon Dioxide 24 mmol/L (22-30); Chloride 106 mmol/L (98-107); Cholesterol 143 mg/dL (0-200); Estimated Glomerular Filt Rate > 60; Glucose 86 mg/dL (65-110); HDL Direct 56 mg/dL; Potassium 3.4 mmol/L (3.4-5.0); Sodium 138 mmol/L (137-145); Total Protein 7.4 g/dL (6.3-8.2); Triglycerides 146 mg/dL (<150)
[2025-02-05 09:25] LABS: Syphilis IgG/IgM Antibody Non-Reactive (Nonreactive)
[2025-02-05 09:29] LABS: Hepatitis B Surface Antigen Negative (Negative)
[2025-02-05 09:35] LABS: HAV RESULT Negative (Negative); Hepatitis B Core IgM Result Negative (Negative)
[2025-02-05 10:18] LABS: Trichomonas Vag PCR NOT DETECTED (NOT DETECTE)
[2025-02-05 10:59] LABS: Iron 34 ug/dL (37-170)
[2025-02-05 11:11] LABS: Percent Iron Saturation 8 % (20-50)
[2025-02-05 11:29] LABS: HIV 1/2 Ab P24 Ag Result Negative (Negative)
[2025-02-05 12:33] LABS: Ferritin 5.46 ng/mL (6.24-137)
[2025-02-06 08:09] LABS: HSV 1 IgG, Type Spec Reactive (Non Reactive); HSV 2 IgG, Type Spec Non Reactive (Non Reactive)
== END 2025-02-05 07:59 | disposition home or self-care (01) ==
PROVIDERS: PCP Nurse Practitioner Family; Visit Provider Nurse Practitioner Family
DX: Z00.00 Encounter for general adult medical examination without abnormal findings (principal); E61.1 Iron deficiency; R74.01 Elevation of levels of liver transaminase levels; Z13.220 Encounter for screening for lipoid disorders; Z11.3 Encounter for screening for infections with a predominantly sexual mode of transmission; Z11.59 Encounter for screening for other viral diseases; Z11.4 Encounter for screening for human immunodeficiency virus [HIV]
CPT/HCPCS: 36415; 80053; 80061; 80074; 82728; 83540; 83550; 85027; 86593; 86695; 86696; 86703; 87491; 87591; 87661; G0432

== ENCOUNTER 2025-03-27 08:49 | Emergency (ER) | payer BC, SELFPAY ==
[2025-03-27 08:54] VITALS: BP 111/69; PULSE 77; RESP 18; TEMP 37.1; O2SAT 99
--- OUTSIDE RECORDS SUMMARY | 2025-03-27 08:54 | XMS_ITS | Clinical Summary ---
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
--- OUTSIDE RECORDS SUMMARY | 2025-03-27 08:54 | XMS_ITS | Data Portability ---
Author Organization [facility] [place] Address [address] [place] [address] Care Team Providers Care Joint Cleaning Machine Operator Name Role Phone CLARISSA MANUEL Primary Care Provider Assessment No assessment recorded. Plan of Treatment Reminders Order Date Submit Date Provider Last Modified By Organization Details Last Modified Time Details Appointments None recorded. Lab None recorded. Referral None recorded. Procedures None recorded. Surgeries None recorded. Imaging None recorded. Medication Orders Junel Fe 24 1 mg-20 mcg (24)/75 mg (4) tablet 2023 024 [facility]78, [address], [place], [place], [id number], 4 15:45:54 clotrimazol e-betametha sone 1 %-0.05 % topical cream 2022 023 [place] [address] [facility] #57655, [address], [place], [place], [id number], 4 15:30:25 Diflucan 150 mg tablet 2022 023 [facility] #30545, [address], [place], [place], [id number], 4 15:30:31 fluticasone propionate 50 mcg/actuati on nasal spray,suspe nsion 2021 022 [facility], [address], [place], [place], [id number], 4 15:30:34 Xulane 150 mcg-35 mcg/24 hr transdermal patch 2021 [facility], [address], [place], [place], [id number], 4 15:30:40 Patient TargetsNo targets recorded. Patient [...] ption;Re corded Elsewher e: No Locat ion: [facility] S ource: EHR Patient Advocate renea: N Mariati ce ID: 0001 Avelino lable Time: 01:00:00 PM Love michelle [facility] 15:24:[address] Concept Completed 201804/28/2020 Encntr for routine child health exam w/o abnormal findings ;Recorde d Elsewher e: No Locat ion: [facility] S ource: EHR Patient Advocate renea: N Mariati ce ID: 0001 Avelino lable Time: 01:00:00 PM Love michelle [facility] 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 15:24:[address] Concept Completed 201804/28/2020 Encounte r for surveill ance of other contrace ptives;R ecorded Elsewher e: No Locat ion: [facility] S ource: EHR Patient Advocate renea: N Practi ce ID: 0001 Avelino lable Time: 03:30:00 PM Love michelle, [facility] 15:24:24 Procedur e Completed 201804/28/2020 Enctr srvlnc implanta ble subderma l contrace ptive;Pr actice ID: 0001 Love michelle, [facility] 15:24:19 Blood leukocyt e number above referenc e range [id number] Completed 201804/28/2020 Elevated white blood cell count, unspecif ied;Prac yeimi ID: 0001 Love michelle [facility] 15:24:17 Urinary tract infectio us disease 78144616 Completed 201804/28/2020 Urinary tract infectio n, site not specifie d;Practi ce ID: 0001 Love michelle, [facility] 15:24:26 Breast lump [id number] Completed 201804/28/2020 Unspecif ied lump in unspecif ied breast;P ractice ID: 0001 Love Jacinto [facility], [facility] 15:24:11 Evaluati on finding Completed 201804/28/2020 Hematuri a, unspecif ied;Prac yeimi ID: 0001 Love michelle, [facility] 15:24:15 Problem Notes None recorded. Procedures Surgical History Date Name Laterality Status Provider Name and Address Organization Details Recorded Time Appendectomy completed Nona [facility] 01/11/2020 12:39:52 repair of urinary bladder completed Nona [facility] 01/11/2020 12:40:00 Other completed Love Jacinto [facility] 07/16/2020 14:54:01 Imaging Results None recorded. Procedure Notes None recorded. Medical Equipment None Reported. Allergies Allergen ID Allergen Name Allergen Category Reaction Reaction Severity Criticality Documentation Date Start Date Code Code System Note Provider Name and Address Organization Details Recorded Time 50346 peanut allergeni c extract food,medi cation abdominal pain severe Not available 07/16/2020 46527 8 RxNorm Love michelle [facility] 14:53:54 88117 Dairy medicatio n abdominal pain severe Not available 07/16/2020 Love michelle [facility] 14:53:54 17805 egg extract food,medi cation abdominal pain severe Not available 07/16/2020 34506 15 RxNorm Love michelle [facility] 14:53:54 Medications Name Sig Start Date [...] 03/30/2022 161.29 cm 18.3 kg/m2 8 % 10148.9 2 g 121/82 mm[Hg] Rosey Lindsey [facility] 12:06:24 Date Recorded Body height Body mass index (BMI) Body weight Systolic And Diastolic Provider Name and Address Organization Details Last Updated DateTime 05/30/2023 161.29 cm 18.3 kg/m2 18437.2 g 127/77 mm[Hg] Clarissa Duong [facility] 05/30/2023 15:30:13 Date Recorded Body height Body mass index (BMI) [Percentile] Per age and sex Body mass index (BMI) Body weight Systolic And Diastolic Provider Name and Address Organization Details Last Updated DateTime 10/04/2020 161.29 cm 3 % 17.4 kg/m2 08530.2 4 g 118/78 mm[Hg] Cassie Verma [facility] 1 12:52:30 Date Recorded Body height Body mass index (BMI) Body mass index (BMI) [Percentile] Per age and sex Body weight Systolic And Diastolic Provider Name and Address Organization Details Last Updated DateTime 10/28/2022 161.29 cm 17.8 kg/m2 5 % 70465.4 2 g 119/75 mm[Hg] Roxie Torres [facility] 3 14:34:25 Date Recorded Body height Body mass index (BMI) [Percentile] Per age and sex Body weight Body mass index (BMI) Body mass index (BMI) [Percentile] Per age and sex Systolic And Diastolic Provider Name and Address Organization Details Last Updated DateTime 2 161.29 cm 3 % 99096.2 4 g 17.4 kg/m2 3 % 102/78 mm[Hg] Rosey Arteaga [facility] 2 10:52:57 Social History Question Answer Notes LastModified by Organizat ion Details LastModified Time Tobacco Smoking Status Never Smoker [facility] 07/16/2020 14:53:58 Are You Blind Or Do You Have Difficulty Seeing? No [email or web address] Information n ot available 07/16/2020 What Is Your Level Of Caffeine Consumption? Heavy [email or web address] Information not available 07/16/2020 How Much Tobacco Do You Chew? None [email or web address] Information not available 07/16/2020 In The 14 Days Before Symptom Onset, Have You Had Close Contact With A Laboratory-confirm ed COVID-19 While That Case Was Ill? No [email or web address] Information n ot available 07/16/2020 In The 14 Days Before Symptom Onset, Have You Had Close Contact With A Person Who Is Under Investigation For COVID-19 While That Person Was Ill? No Information not available 07/16/2020 Have You Been To An Area Known To Be High Risk For COVID-19? No [email or web address] Information not available 07/16/2020 Are You Deaf Or Do You Have Serious Difficulty Hearing? No [email or web address] Information not available 07/16/2020 What Type Of Diet Are You Following? REGULAR [email or web address] Information n ot available 07/16/2020 What Is The Highest Grade Or Level Of School You Have Completed Or The Highest Degree You Have Received? DF85696-6 [email or web address] Information not available 07/16/2020 Are There Any Guns Present In Your Home? No Information not available 07/16/2020 Do You Use Protection During Sex? No Information not available 07/16/2020 Do You Use Your Seat Belt Or Car Seat Routinely? Yes Information not available 07/16/2020 Do You Have Smoke And Carbon Monoxide Detectors In Your Home? Yes [email or web address] Information not available 07/16/2020 At What Age Did You Start Smoking Tobacco? 1 [email or web address] Information not available 07/16/2020 How Much Tobacco Do You Smoke? No [email or web address] Information not available 07/16/2020 Do You Use Sunscreen Routinely? Yes Information not available 07/16/2020 How Many Years Have You Smoked Tobacco? 0 [email or web address] Information not available 07/16/2020 Have You Used IV Drugs? No [email or web address] Information not available 07/16/2020 Sex: Unknown Functional Status Question Answer Note LastModified by Organizat ion Details LastModified Time Do you use any illicit or recreational drugs? No [email or web address] Information not available 07/16/2020 What is your level of alcohol consumption? None Information not available 01/14/2020 Are you able to walk independently without assistance or assistive devices? YESWOREST [email or web address] Information not available 07/16/2020 Do you or have you ever used e-cigarettes or vape? Current user of electronic cigarettes [email or web address] Information not available 07/16/2020 What is your exercise level? Occasional Information not available 01/14/2020 Mental Status Question Answer Note LastModified by Organization D etails LastModified Time Do you feel stressed (tense, restless, nervous, or anxious, or unable to sleep at night)? [id number] Information not available 07/16/2020 Family History Relationship [...] available 2019 12:42:00 Medical History Condition Response Anemia Y Asthma Y Gynecological History Statement/Question Response Abnormal Pap [...] ICD10 Code Diagnosis IMO Codes Diagnosis Note [id number] Asuncion Perez CNM [place] [address] [address] 01/14/2020 10:37:59 01/14/2020 13:47:34 Gynecologic examination 08784424 Z01.419 Take Calcium with Vitamin D 1200mg [...] of today's plan if desired.p Tobacco user [id number] Z 72.0 Pt uses a vape. Discussed risks and spoke with patient in detail about quitting. Offered resources. Pt receptive. [id number] [facility]ayna Hansen [facility] [address] [address] 04/30/2020 11:34:33 05/01/2020 13:06:00 Menorrhagia 921955797 N92.0 Today, We discussed options to help [...] this patient s visit, including available hand commutator operator upon arrive, temperatur e check and being [...] counseling and review of plan of care. [id number] Shayna Hansen [facility] [address],[facility] [address] 07/16/2020 14:47:56 07/16/2020 16:03:37 Contraception care management [id number] Z30.9 Patient is here today for a medicaton check of control Nuvaring. She voices goals of therapy have been met with use of this therapy. She denies neg side effects. She is eating, drinking, sleeping well; moods are stable & periods are well regulated. Wishes to continue this method of BC. Appropriat e to continue this medication . Deep pain on intercourse 801342212 N94.12 PFD found on exam. Hx of [...] this patient s visit, including available hand commutator operator upon arrive, temperatur e check and being asked a series of screening questions. All staff wore face coverings during this encounter, as well as provided additional cleaning and sanitizing of all surfaces, including counter-to ps, pens, chairs, door handles, light switches, etc, prior to and following the patient s visit. [id number] Shayna Hansen , [facility] [address] [address] 10/04/2020 12:40:05 10/06/2020 10:16:43 Contraception care management [id number] Z30.9 Nuvaring.T usama we discussed trying to [...] this patient s visit, including available hand commutator operator upon arrive, temperatur e check and being asked a series of screening questions. All staff wore face coverings during this encounter, as well as provided additional cleaning and sanitizing of all surfaces, including countertop s, pens, chairs, door handles, light switches, etc, prior to and following the patient s visit. [id number] Shayna Hansen , [facility] [address] [address] 01/12/2022 10:40:26 01/12/2022 12:31:03 Contraception care management 102730890 Z30.9 Patch.Woul d rather switch to patch [...] this patient s visit, including available hand commutator operator upon arrive, temperatur e check and being asked a series of screening questions. All staff wore face coverings during this encounter, as well as provided additional cleaning and sanitizing of all surfaces, including countertop s, pens, chairs, door handles, light switches, etc, prior to and following the patient s visit. Seasonal a llergic rhinitis [id number] J30.2 544103 SOFIYA [facility] [address] [address] 03/30/2022 11:58:41 03/30/2022 13:38:45 Contraception care management [id number] Z30.9 Patient is here today for a [...] counseling and review of plan of care. [id number] Bright Juarez MD [place] [address] [address] 10/28/2022 14:10:51 10/28/2022 15:05:13 Vulvovaginitis 63529803 N76.0 This patient is a 21-year-ol d female who presents for vulvar irritation discharge. She for several days has had white discharge inflammati on swelling. She has some swelling and erythema on the vulva. It was examined. The distal vagina appears normal. There is white discharge at the introitus. She will be treated with oral Diflucan and a topical steroid/an tifungal. [id number] SOFIYA Block [place] [address] [address] 05/30/2023 15:19:03 05/31/2023 09:26:00 Contraception care management 342981307 Z30.9 Discussed all control options in great [...] Hayden Member ID Guarantor Name 12/16/2021 2 [place] Lizeth Kai [id number] Lizeth Kai 03/23/2022 1 [facility] [id number] Jorge Quinn [id number] Lizeth Zavalatate 03/30/2024 1 [place] [id number] Jorge Lucastate [id number] Lizeth Quinn Notes Date Note Type [...] the BC patch as well. Shayna Hansen [facility] [address], [place], [address], [facility] 10/04/2020 13:14:59 01/12/2022 text/html ROS as noted in the HPI Here today for medication check. Shayna Hansen [facility] [address], [place], [address], [facility] 01/12/2022 12:00:59 03/30/2022 text/html ROS as noted in the HPI Here today for medication check of Xulane patch. Shayna Hansen [facility] [address], [place], [address], [facility] 03/30/2022 12:35:51 10/28/2022 text/html Vaginal/Vulvar ProblemReported [...] steroid/antifungal. Bright Juarez MD [address], [place], [address], [facility] 10/28/2022 14:51:51 05/30/2023 text/html 22yo [id number] for BC consultusing withdrawal for BC currentlywas on the patch about 6 months ago, would like a different methodhas also tried pills and the nuvaring previouslydenies h/o DVT/PE, HTN, Stroke/MO, cancer, liver disease, or migraine with aura SOFIYA Block [address], [place], [address], [facility] 05/31/2023 09:14:59 OBGyn Episode No OBEpisode recorded.
--- OUTSIDE RECORDS SUMMARY | 2025-03-27 08:54 | XMS_ITS | Clinical Summary ---
Author Organization [facility] Address [address] [place] [address] Phone Care Team Providers Care Hadoop Consultant Name Role Phone Matt Sanchez MD Primary Care Provider [phone] Clarissa Kiser APRN, FELTMAKER AND WEIGHER Unavailable [phone] Allergies No known active allergies Medications sulfamethoxazol [...] 09/19/2002, 04/24/2002, Additional history exists Varicella Immunization Completed 05/18/2006, 2002 DTaP/Tdap/Td Immunization Discontinued 2013, 05/18/2006, 03/19/2003, Additional history exists TdaP Immunization Completed 08/24/2013 Human Papillomavirus (HPV) Immunization Completed 04/17/2014, 11/05/2013, 08/24/2013 Hepatitis A Immunization Discontinued 05/27/2015, 07/28 Meningococcal Immunization (ACWY) Completed 04/04/2018, 08/24/2013 Meningococcal B Immunization Completed 01/16/2020, 04/04/2018 Rotavirus Immunization Aged Out No lo nger eligible based on patient's age to complete this topic Care Teams Hadoop Consultant Relationship Specialty Start Date End Date Matt Sanchez MD PCP - General Family Medicine 12/13/21 Clarissa Kiser I, [employer] SOFTWARE DEVELOPER, F[employer]KER [employer] WEIGHER [address] [place] [id number] Advanced Practice Nurse 12/13/21
--- NOTE | 2025-03-27 09:19 | ED.FEMALEGU ---
HPI - Female Genitourinary General Chief complaint: Urogenital-Female Stated complaint: uti Time Seen by Provider: 03/27/25 09:14 Source: patient, RN notes reviewed and old records reviewed Mode of arrival: ambulatory Limitations: no limitations History of Present Illness HPI Narrative: 24-year-old female patient presents today with 3 day history of frequency, urgency, dysuria. Denies fever, abdominal pain, back pain. She has been taking azo for the past 2 days with some improvement. Related Data Allergies Allergy/AdvReac Type Severity Reaction Status Date / Time egg Allergy Chest Pain Verified 03/27/25 09:05 milk Allergy Chest Pain Verified 03/27/25 09:05 peanut Allergy Chest Pain Verified 03/27/25 09:05 peanut oil Allergy Chest Pain Verified 03/27/25 09:05 PMF Past Medical History Medical History Iron deficiency Screen for STD (sexually transmitted disease) Mononucleosis Strep pharyngitis UTI (urinary tract infection) Surgical History Surgical History H/O bladder repair surgery History of appendectomy Family History Family History Other No acute medical problems Social History Social History Smoking status: Current every day smoker Tobacco type: e-cigarettes/vaping Alcohol intake: never Substance use: never Substance use type: does not use Living arrangements: with family Occupation/Education: student Gender identity (if verbalized by the patient): Female Sexual Orientation (if Verbalized by the Patient): Straight or Heterosexual Spiritual care concerns: No Agree to blood products: Yes Comments At time of signature, I have reviewed and agree with nursing past medical, surgical, social and family history unless otherwise noted. Please see nursing chart for further information. There is no relevant family history pertinent to the presenting complaint Exam Narrative: GENERAL: Well-appearing, well-nourished, and in no acute distress. HEAD: Normocephalic, atraumatic. EYES: EOMI. No redness or drainage. Conjunctivae normal. ENT: Mucous membranes pink and moist. NECK: Normal AROM. CHEST: No respiratory distress. Clear to auscultation. HEART: Regular rate and rhythm. No murmur appreciated. ABDOMEN: Soft, nondistended, normal active bowel sounds.+ mild suprapubic tenderness.-CVAT EXTREMITIES: Normal range of motion. No edema. SKIN: Warm, dry, no rash. Capillary refill normal. Normal skin turgor. NEURO: No focal deficits. Alert and oriented x3. Gait steady. PSYCH: Normal affect. No signs of depression or anxiety. Course Course Level of Care: Express Care Visit Vital Signs Vital signs: Vital Signs Temperature 98.8 F 03/27/25 08:54 Pulse Rate 77 03/27/25 08:54 Respiratory Rate 18 03/27/25 08:54 Blood Pressure 111/69 03/27/25 08:54 Pulse Oximetry 99 03/27/25 08:54 Oxygen Delivery Room Air 03/27/25 08:54 Temperature 98.8 F 03/27/25 08:54 Pulse Rate 77 03/27/25 08:54 Respiratory Rate 18 03/27/25 08:54 Blood Pressure 111/69 03/27/25 08:54 Pulse Oximetry 99 03/27/25 08:54 Oxygen Delivery Room Air 03/27/25 08:54 Reviewed MDM MDM Narrative Medical decision making narrative: 24-year-old female patient presents today with 3 day history of frequency, urgency, dysuria. Denies fever, abdominal pain, back pain. She has been taking azo for the past 2 days with some improvement. Upon exam, patient has a mildly tender suprapubic area. No CVAT. Unable to run patient's UA due to azo use. Culture pending. Will start patient on a course of Augmentin based on previous urine culture results. Patient agrees with plan. Vital signs stable. Anticipatory guidance and ED precautions given. Differential Diagnosis Differential Diagnosis: UTI, pyelonephritis, interstitial cystitis. Critical Care Time Critical Care Time Critical Care Time: No Discharge Plan Discharge Clinical Impression: UTI symptoms Patient Disposition: Home Condition: Stable Instructions: Urinary Tract Infection in Women (DC) Additional Instructions: Please take Augmentin as prescribed until gone. You will be notified by telephone if your antibiotics need to be changed based on urine culture results in a few days. Follow-up with your PCP in 3 days if symptoms are not improving. Go to the ER immediately if you develop worsening symptoms such as severe abdominal or back pain, development of fever nausea vomiting, sweats or chills. Patient Language: Macedonian Prescriptions: New amoxicillin-pot clavulanate 875-125 mg tablet 1 tablet PO Q12H 7 Days Qty: 14 0RF No Action ferrous sulfate 325 mg (65 mg iron) tablet 325 mg PO DAILY Qty: 90 3RF Follow-up/Referrals: Matt Sanchez MD [Primary Care Provider, Family Practice] Time of Disposition: 09:23
== END 2025-03-27 09:35 | disposition home or self-care (01) ==
PROVIDERS: Emergency Provider Nurse Practitioner; PCP Family Medicine
DX: R30.0 Dysuria (principal); R35.0 Frequency of micturition; R39.15 Urgency of urination; F17.290 Nicotine dependence, other tobacco product, uncomplicated; E61.1 Iron deficiency
CPT/HCPCS: 87077; 87086; 87186; 99213; G0463